=== PATIENT | female | born 1995 | race African-American/Black ===

== ENCOUNTER 2024-03-03 11:00 | Emergency (ER) | payer OTHER ==
[2024-03-03 11:11] VITALS: BP 164/71; PULSE 93; RESP 20; TEMP 98.4; BMI 20.5
[2024-03-03] MEDS ORDERED: METOCLOPRAMIDE HCL INJECTION 10 MG/2 ML VIAL ONE (11:41)
[2024-03-03] MEDS ORDERED: ACETAMINOPHEN INJECTION 100 ML IVPB ONE (11:42)
[2024-03-03] MEDS ORDERED: FAMOTIDINE 20 MG/50 ML IVPB 20 MG/50 ML MG IVPB ONE (11:42)
[2024-03-03] MEDS: SODIUM CHLORIDE 1,000 ML IV STA (12:04)
[2024-03-03] MEDS: METOCLOPRAMIDE HCL INJECTION 10 MG/2 ML VIAL IVPUSH ONE (12:04)
[2024-03-03] MEDS: FAMOTIDINE 20 MG/50 ML IVPB 20 MG/50 ML MG IVPB ONE (12:04)
[2024-03-03] MEDS: ACETAMINOPHEN 1000 MG/100 ML BAG IVPB ONE (12:04)
[2024-03-03 12:07] LABS: BASO % 0.5 % (0-2.0); HEMATOCRIT 46.3 % (32.4-45.2); HEMOGLOBIN 14.9 GM/dL (10.7-15.3); LYMPH % 8.7 % (8-40); MCH 29.5 pg (25.7-33.7); MCHC 32.2 g/dl (32.0-36.0); MEAN CELL VOLUME 91.8 fl (80-96); MEAN PLT VOLUME 8.6 fl (7.5-11.1); MONO % 3.8 % (3.8-10.2); PLATELET COUNT 278 10^3/uL (134-434); RBC 5.04 M/mm3 (3.60-5.2); RDW 14.3 % (11.6-15.6); WHITE BLOOD COUNT 12.3 K/mm3 (4.0-10.0)
[2024-03-03 12:32] LABS: POTASSIUM 4.3 mmol/L (3.5-5.1)
[2024-03-03 12:34] LABS: ALBUMIN 4.8 g/dl (3.4-5.0); BLOOD UREA NITROGEN 13.5 mg/dL (7-18); CALCIUM 10.3 mg/dL (8.5-10.1)
[2024-03-03 12:37] LABS: CREATININE 0.9 mg/dL (0.55-1.3)
[2024-03-03 12:39] LABS: BILIRUBIN,TOTAL 1.1 mg/dL (0.2-1); TOT PROT 8.9 g/dl (6.4-8.2)
[2024-03-03 12:42] LABS: THROAT:GRP A STREP NOT DETECTED (NOTDETECTED)
[2024-03-03 13:27] LABS: HIV INTERPRETATION NEGATIVE (NEGATIVE)
[2024-03-03 14:50] LABS: EPI CELLS 25 /uL (0-25.1); HYALINE CASTS 5 /uL (0-3.1); PH,URINE 5.5 (5.0-8.0); URINE APPEARANCE CLEAR; URINE BACTERIA 249 /uL (0-1359); URINE BILIRUBIN NEGATIVE (NEGATIVE); URINE COLOR YELLOW; URINE GLUCOSE (UA) NEGATIVE (NEGATIVE); URINE KETONE 2+ (NEGATIVE); URINE LEUK ESTERASE NEGATIVE (NEGATIVE); URINE NITRITE NEGATIVE (NEGATIVE); URINE PROTEIN 1+ (NEGATIVE); URINE RBC 22 /uL (0-23.9); URINE UROBILINOGEN 0.2 mg/dL (0.2-1.0); URINE WBC 11 /uL (0-25.8)
[2024-03-03 15:14] LABS: HCG,QUALITATIVE URINE Negative
== END 2024-03-03 14:36 | disposition left against medical advice (07) ==
LOC: JER 11:00
PROC: 3E033GC Introduction of Other Therapeutic Substance into Peripheral Vein, Percutaneous Approach (ICD-10-PCS; principal; 2024-03-03)
PROC: 3E033NZ Introduction of Analgesics, Hypnotics, Sedatives into Peripheral Vein, Percutaneous Approach (ICD-10-PCS; 2024-03-03)
PROC: 3E033GC Introduction of Other Therapeutic Substance into Peripheral Vein, Percutaneous Approach (ICD-10-PCS; 2024-03-03)
PROC: 3E0337Z Introduction of Electrolytic and Water Balance Substance into Peripheral Vein, Percutaneous Approach (ICD-10-PCS; 2024-03-03)
DX: R11.2 Nausea with vomiting, unspecified (principal); R10.13 Epigastric pain; Z20.822 Contact with and (suspected) exposure to COVID-19
CPT/HCPCS: 0241U-QW; 36415; 74177-TC; 80053; 81003; 83690; 84703; 85025; 87086; 87389; 87651; 99285-25; J0131; Q9967

== ENCOUNTER 2025-02-06 14:19 | Emergency (ER) | payer OTHER ==
[2025-02-06 14:30] VITALS: BP 153/92; PULSE 107; RESP 20; TEMP 98.6
[2025-02-06] MEDS ORDERED: IBUPROFEN 600 MG TABLET (FP) PO ONE (15:05)
[2025-02-06] MEDS: IBUPROFEN 600 MG TABLET (FP) PO ONE (15:10)
[2025-02-06] MEDS ORDERED: DIPHTH,PERTUSS(ACELL),TET 0.5 ML DISP.SYRIN IM ONE (15:42)
[2025-02-06] MEDS ORDERED: BACITRACIN ZINC 15 GM TUBE TOPICAL OINTMENT ONE (15:42)
[2025-02-06] MEDS: BACITRACIN 0.9 GM PACKET TP ONE (15:51)
[2025-02-06] MEDS: DIPHTH,PERTUSS(ACELL),TET 0.5 ML DISP.SYRIN IM ONE (15:51)
== END 2025-02-06 16:07 | disposition home or self-care (01) ==
LOC: JERFT 14:19
PROC: 2W3SX1Z Immobilization of Right Foot using Splint (ICD-10-PCS; principal; 2025-02-06)
PROC: 3E0234Z Introduction of Serum, Toxoid and Vaccine into Muscle, Percutaneous Approach (ICD-10-PCS; 2025-02-06)
DX: S92.351A Displaced fracture of fifth metatarsal bone, right foot, initial encounter for closed fracture (principal); S90.812A Abrasion, left foot, initial encounter; Z23 Encounter for immunization; W17.89XA Other fall from one level to another, initial encounter; X50.1XXA Overexertion from prolonged static or awkward postures, initial encounter
CPT/HCPCS: 29515; 73610-TC-RT-FY; 73630-TC-RT-FY; 90471; 90715; 99284-25